=== PATIENT | male | born 1960 | race Caucasian/White ===

== ENCOUNTER 2017-11-27 11:23 | Inpatient (IN) | payer MEDICAID ==
[~2017-11-27] VITALS: Ht 170.2 cm; Wt 61.2 kg
[2017-11-27 12:28] LABS: BASOPHILS % 0.3 % (0.0-2.0); EOSINOPHILS % 0.6 % (0.0-5.0); HEMATOCRIT. 40.4 % (42.0-52.0); HEMOGLOBIN. 14.1 g/dL (14.0-18.0); LYMPHOCYTES % 9.5 % (20.0-50.0); MEAN CORPUSCULAR HEMOGLOBIN 31.3 pg (28.0-32.0); MEAN PLATELET VOLUME 8.5 fl (7.4-10.4); MONOCYTES % 5.8 % (2.0-8.0); NEUTROPHILS % 83.8 % (40.0-76.0); PLATELET 231 x1000/uL (130-400); RED BLOOD CELL COUNT 4.49 mill/uL (4.7-6.1); RED CELL DISTRIBUTION WIDTH 13.6 % (11.6-14.6)
[2017-11-27 12:31] LABS: CHLORIDE 107 mEq/L (98-107)
[2017-11-27 12:35] LABS: ETHANOL BLOOD < 10 mg/dL
[2017-11-28] VITALS: BP 143/50
[2017-11-28] MEDS ORDERED: SODIUM CHLORIDE 0.9% 1,000 ML IV ONE ×2 (09:09→12:11)
[2017-11-28 10:12] LABS: CLARITY URINE CLEAR (CLEAR); COLOR URINE YELLOW (YELLOW); KETONES URINE NEGATIVE (NEGATIVE); LEUKOCYTE ESTERASE URINE NEGATIVE (NEGATIVE); NITRITE URINE NEGATIVE (NEGATIVE); OCCULT BLOOD URINE NEGATIVE (NEGATIVE); PH URINE 5.5 (4.5-8.0); PROTEIN URINE NEGATIVE (NEGATIVE); SPECIFIC GRAVITY URINE 1.015 (1.005-1.030); UROBILINOGEN URINE 0.2 E.U./dL (0.2-1.0)
[2017-11-28] MEDS ORDERED: MORPHINE SULFATE 4 MG/ML CPJ (NOT FOR IM USE) IV ONE (10:45)
[2017-11-28] MEDS ORDERED: ONDANSETRON HCL 4MG/2ML INJ IV ONE (10:45)
[2017-11-28 10:59] LABS: *AMPHETAMINES SCREEN URINE PRESUMTIVE POSITIVE (NEGATIVE)
[2017-11-28 11:01] LABS: *BARBITURATES SCREEN URINE NEGATIVE (NEGATIVE); *BENZODIAZEPINES SCREEN URINE NEGATIVE (NEGATIVE); *COCAINE SCREEN URINE NEGATIVE (NEGATIVE); CANNABINOID URINE SCREEN NEGATIVE (NEGATIVE); OPIATES URINE SCREEN NEGATIVE (NEGATIVE); PHENCYCLIDINE URINE SCREEN NEGATIVE (NEGATIVE)
[2017-11-28 11:03] LABS: AMMONIA 31 uMol/L (<32)
[2017-11-28 11:12] LABS: METHADONE URINE SCREEN NEGATIVE (NEGATIVE)
[2017-11-28 15:03] LABS: CREATINE KINASE 945 IU/L (39-308)
[2017-11-28] MEDS ORDERED: CLONIDINE 0.1MG TABLET PO PRN (16:45)
[2017-11-28] MEDS ORDERED: ACETAMINOPHEN 325MG TABLET PO PRN (16:45)
[2017-11-28] MEDS ORDERED: MAGNESIUM/ALUMINUM HYDROXIDE/SIMETHICONE 30ML UDC PO PRN (16:45)
[2017-11-28] MEDS ORDERED: IPRATROPIUM/ALBUTEROL 0.5-3(2.5)MG/3ML NEB INH PRN (16:45)
[2017-11-28] MEDS ORDERED: DOCUSATE SODIUM 100MG CAPSULE PO PRN (16:45)
[2017-11-28] MEDS ORDERED: ONDANSETRON HCL 4MG/2ML INJ IV PRN (16:45)
[2017-11-28] MEDS ORDERED: NITROGLYCERIN 0.4MG TABLET SL SL PRN (16:45)
[2017-11-28] MEDS ORDERED: KETOROLAC 15MG/ML VIAL IV PRN (18:06)
[2017-11-28] MEDS ORDERED: NA PHOS,M-B/NA PHOS,DI-BA ENEMA 118ML PR PRN (21:00)
[2017-11-28 21:20] VITALS: BP 103/50
[2017-11-28] MEDS: FAMOTIDINE 20MG TABLET PO SCH (22:01)
[2017-11-28] MEDS: SODIUM CHLORIDE 0.9% 1,000 ML IV SCH (22:59)
[2017-11-29 04:00] VITALS: BP 131/58
[2017-11-29 06:43] LABS: CREATINE KINASE MB FRACTION 25.3 ng/mL (0.5-3.6)
[2017-11-29 08:00] VITALS: BP 115/62
[2017-11-29] MEDS: ASPIRIN 325MG EC TABLET PO SCH (09:00)
[2017-11-29] MEDS: FAMOTIDINE 20MG TABLET PO SCH ×3 (09:00→21:00)
[2017-11-29] MEDS: ENOXAPARIN 40MG/0.4ML SYR SUBCUT SCH (09:13)
[2017-11-29] MEDS: LORAZEPAM 0.5MG TABLET PO PRN ×2 (10:17→20:45)
[2017-11-29 12:00] VITALS: BP 136/59
[2017-11-29 16:00] VITALS: BP 110/64
[2017-11-29] MEDS: SODIUM CHLORIDE 0.9% 1,000 ML IV SCH (18:06)
[2017-11-29 20:00] VITALS: BP 118/53
[2017-11-29] MEDS: ATORVASTATIN CALCIUM 10MG TABLET PO SCH ×2 (20:44→21:00)
[2017-11-30] MEDS: SODIUM CHLORIDE 0.9% 1,000 ML IV SCH ×2 (00:43→14:33)
[2017-11-30 04:00] VITALS: BP 138/85
[2017-11-30 06:35] LABS: HEMATOCRIT. 43.2 % (42.0-52.0); MEAN CORPUSCULAR HEMOGLOBIN 31.4 pg (28.0-32.0); MEAN CORPUSCULAR VOLUME 90.5 fL (80.0-94.0); MEAN PLATELET VOLUME 8.8 fl (7.4-10.4); PLATELET 231 x1000/uL (130-400); RED BLOOD CELL COUNT 4.78 mill/uL (4.7-6.1); RED CELL DISTRIBUTION WIDTH 13.7 % (11.6-14.6)
[2017-11-30 07:37] LABS: CHLORIDE 102 mEq/L (98-107)
[2017-11-30 08:00] VITALS: BP 121/36
[2017-11-30] MEDS: FAMOTIDINE 20MG TABLET PO SCH ×2 (09:16→20:56)
[2017-11-30] MEDS: ENOXAPARIN 40MG/0.4ML SYR SUBCUT SCH (09:16)
[2017-11-30] MEDS: ASPIRIN 325MG EC TABLET PO SCH (09:16)
[2017-11-30 12:00] VITALS: BP 105/36
[2017-11-30 16:00] VITALS: BP 105/33
[2017-11-30 17:34] LABS: PLATELET ESTIMATE NORMAL
[2017-11-30 20:00] VITALS: BP 121/47
[2017-11-30] MEDS: ATORVASTATIN CALCIUM 10MG TABLET PO SCH (20:56)
[2017-12-01] VITALS: BP 106/45
[2017-12-01 04:00] VITALS: BP 122/56
[2017-12-01 08:00] VITALS: BP 108/49
[2017-12-01] MEDS: FAMOTIDINE 20MG TABLET PO SCH ×2 (09:00→21:00)
[2017-12-01] MEDS: ASPIRIN 325MG EC TABLET PO SCH (09:00)
[2017-12-01] MEDS: ENOXAPARIN 40MG/0.4ML SYR SUBCUT SCH (11:15)
[2017-12-01] MEDS: SODIUM CHLORIDE 0.9% 1,000 ML IV SCH ×2 (11:28→16:43)
[2017-12-01 12:00] VITALS: BP 123/63
[2017-12-01 16:00] VITALS: BP 110/60
[2017-12-01 20:00] VITALS: BP 127/59
[2017-12-01] MEDS: ATORVASTATIN CALCIUM 10MG TABLET PO SCH (21:00)
[2017-12-02] VITALS: BP 116/57
[2017-12-02 04:00] VITALS: BP 126/81
[2017-12-02] MEDS: SODIUM CHLORIDE 0.9% 1,000 ML IV SCH ×2 (06:03→21:35)
[2017-12-02 08:00] VITALS: BP 108/50
[2017-12-02] MEDS: FAMOTIDINE 20MG TABLET PO SCH ×2 (09:45→20:27)
[2017-12-02] MEDS: ENOXAPARIN 40MG/0.4ML SYR SUBCUT SCH (09:46)
[2017-12-02] MEDS: ASPIRIN 325MG EC TABLET PO SCH (09:46)
[2017-12-02 12:00] VITALS: BP 114/52
[2017-12-02 16:00] VITALS: BP 116/54
[2017-12-02 20:00] VITALS: BP 159/66
[2017-12-02] MEDS: ATORVASTATIN CALCIUM 10MG TABLET PO SCH (20:27)
[2017-12-03] VITALS: BP 151/67
[2017-12-03 04:00] VITALS: BP 133/65
[2017-12-03 08:00] VITALS: BP 134/56
[2017-12-03] MEDS: ENOXAPARIN 40MG/0.4ML SYR SUBCUT SCH (09:39)
[2017-12-03] MEDS: FAMOTIDINE 20MG TABLET PO SCH ×2 (09:39→20:48)
[2017-12-03] MEDS: ASPIRIN 325MG EC TABLET PO SCH (09:39)
[2017-12-03 12:00] VITALS: BP 118/49
[2017-12-03 16:00] VITALS: BP 133/37
[2017-12-03 20:00] VITALS: BP 138/46
[2017-12-03] MEDS: ATORVASTATIN CALCIUM 10MG TABLET PO SCH (20:48)
[2017-12-04] VITALS: BP 140/57
[2017-12-04 04:00] VITALS: BP 118/56
[2017-12-04 08:00] VITALS: BP 105/34
[2017-12-04] MEDS: ENOXAPARIN 40MG/0.4ML SYR SUBCUT SCH (09:18)
[2017-12-04] MEDS: ASPIRIN 325MG EC TABLET PO SCH (09:18)
[2017-12-04] MEDS: FAMOTIDINE 20MG TABLET PO SCH ×3 (09:18→21:21)
[2017-12-04 12:00] VITALS: BP 104/54
[2017-12-04 16:00] VITALS: BP 117/60
[2017-12-04 20:00] VITALS: BP_SYST 113; BP_SYST 161; BP_DIAS 52; BP_DIAS 93
[2017-12-04] MEDS: ATORVASTATIN CALCIUM 10MG TABLET PO SCH ×2 (21:00→21:21)
[2017-12-05] VITALS: BP 122/62
[2017-12-05 04:00] VITALS: BP 112/60
[2017-12-05 08:00] VITALS: BP 116/36
[2017-12-05] MEDS: FAMOTIDINE 20MG TABLET PO SCH ×2 (09:18→20:36)
[2017-12-05] MEDS: ASPIRIN 325MG EC TABLET PO SCH (09:18)
[2017-12-05] MEDS: ENOXAPARIN 40MG/0.4ML SYR SUBCUT SCH (09:18)
[2017-12-05] MEDS: CLOPIDOGREL 75MG TABLET PO SCH (11:04)
[2017-12-05 12:00] VITALS: BP 117/55
[2017-12-05 13:51] LABS: T4 FREE 0.72 ng/dL (0.76-1.46)
[2017-12-05 14:04] LABS: FOLIC ACID (FOLATE) SERUM >20 ng/mL ng/mL (>5.38)
[2017-12-05 14:16] LABS: VITAMIN B12 SERUM 1155 pg/mL (211-911)
[2017-12-05 16:00] VITALS: BP 125/45
[2017-12-05 20:00] VITALS: BP 122/36
[2017-12-05] MEDS: ATORVASTATIN CALCIUM 10MG TABLET PO SCH (20:36)
[2017-12-06] VITALS: BP 124/58
[2017-12-06 04:00] VITALS: BP 104/48
[2017-12-06 08:00] VITALS: BP 120/53
[2017-12-06] MEDS: ENOXAPARIN 40MG/0.4ML SYR SUBCUT SCH (08:48)
[2017-12-06] MEDS: ASPIRIN 325MG EC TABLET PO SCH (08:48)
[2017-12-06] MEDS: CLOPIDOGREL 75MG TABLET PO SCH (08:48)
[2017-12-06] MEDS: FAMOTIDINE 20MG TABLET PO SCH ×2 (08:48→21:50)
[2017-12-06 12:00] VITALS: BP 119/55
[2017-12-06 16:00] VITALS: BP 118/54
[2017-12-06 20:00] VITALS: BP 118/49
[2017-12-06] MEDS: ATORVASTATIN CALCIUM 10MG TABLET PO SCH (21:51)
[2017-12-07] VITALS: BP 124/54
[2017-12-07 04:00] VITALS: BP 130/59
[2017-12-07 08:00] VITALS: BP 130/59
[2017-12-07 10:10] LABS: ANTI-THROMBIN ACTIVITY 131 % (75-135); DRVVT LA 29.9 sec (0.0-47.0); LUPUS ANTICOAG INTERPRETATION Comment: (.); PROTEIN C FUNCTIONAL 151 % (73-180)
[2017-12-07] MEDS: FAMOTIDINE 20MG TABLET PO SCH ×2 (11:00→20:53)
[2017-12-07] MEDS: ASPIRIN 325MG EC TABLET PO SCH (11:00)
[2017-12-07] MEDS: ENOXAPARIN 40MG/0.4ML SYR SUBCUT SCH (11:00)
[2017-12-07] MEDS: CLOPIDOGREL 75MG TABLET PO SCH (11:00)
[2017-12-07 12:00] VITALS: BP 110/65
[2017-12-07 16:00] VITALS: BP 102/57
[2017-12-07 17:24] LABS: BASOPHILS % 1.3 % (0.0-2.0); EOSINOPHILS % 0.8 % (0.0-5.0); HEMATOCRIT. 43.4 % (42.0-52.0); HEMOGLOBIN. 15.1 g/dL (14.0-18.0); LYMPHOCYTES % 12.9 % (20.0-50.0); MEAN CORPUSCULAR HEMOGLOBIN 30.9 pg (28.0-32.0); MEAN CORPUSCULAR VOLUME 88.7 fL (80.0-94.0); MEAN PLATELET VOLUME 8.1 fl (7.4-10.4); MONOCYTES % 7.4 % (2.0-8.0); NEUTROPHILS % 77.6 % (40.0-76.0); PLATELET 405 x1000/uL (130-400); RED CELL DISTRIBUTION WIDTH 13.5 % (11.6-14.6)
[2017-12-07 17:33] LABS: CHLORIDE 102 mEq/L (98-107)
[2017-12-07 20:00] VITALS: BP 125/54
[2017-12-07] MEDS: ATORVASTATIN CALCIUM 10MG TABLET PO SCH (20:53)
[2017-12-08] VITALS: BP 121/58
[2017-12-08 04:00] VITALS: BP 130/52
[2017-12-08 08:00] VITALS: BP 107/70
[2017-12-08] MEDS: ASPIRIN 325MG EC TABLET PO SCH (08:32)
[2017-12-08] MEDS: CLOPIDOGREL 75MG TABLET PO SCH (08:32)
[2017-12-08] MEDS: FAMOTIDINE 20MG TABLET PO SCH ×2 (08:32→21:15)
[2017-12-08] MEDS: ENOXAPARIN 40MG/0.4ML SYR SUBCUT SCH (08:32)
[2017-12-08 09:06] LABS: ANTI-CARDIOLIPIN AB IGA 9 APL U/mL (0-11); ANTI-CARDIOLIPIN AB IGM < 9 MPL U/mL (0-12)
[2017-12-08 10:07] LABS: ANTI-CARDIOLIPIN AB IGG < 9 GPL U/mL (0-14)
[2017-12-08 12:00] VITALS: BP 98/55
[2017-12-08 16:00] VITALS: BP 115/41
[2017-12-08 20:00] VITALS: BP 107/44
[2017-12-08] MEDS: ATORVASTATIN CALCIUM 10MG TABLET PO SCH (21:15)
[2017-12-09] VITALS: BP 111/45
[2017-12-09 05:02] VITALS: BP 100/46
[2017-12-09 08:00] VITALS: BP 93/58
[2017-12-09] MEDS: CLOPIDOGREL 75MG TABLET PO SCH (08:58)
[2017-12-09] MEDS: FAMOTIDINE 20MG TABLET PO SCH ×2 (08:58→21:05)
[2017-12-09] MEDS: ASPIRIN 325MG EC TABLET PO SCH (08:58)
[2017-12-09] MEDS: ENOXAPARIN 40MG/0.4ML SYR SUBCUT SCH (08:59)
[2017-12-09 12:00] VITALS: BP 106/37
[2017-12-09 16:00] VITALS: BP 95/49
[2017-12-09 20:00] VITALS: BP 124/39
[2017-12-09] MEDS: ATORVASTATIN CALCIUM 10MG TABLET PO SCH (21:05)
[2017-12-10] VITALS: BP 123/34
[2017-12-10 04:00] VITALS: BP 119/59
[2017-12-10 08:00] VITALS: BP 98/53
[2017-12-10] MEDS: FAMOTIDINE 20MG TABLET PO SCH ×2 (08:46→21:14)
[2017-12-10] MEDS: ASPIRIN 325MG EC TABLET PO SCH (08:46)
[2017-12-10] MEDS: CLOPIDOGREL 75MG TABLET PO SCH (08:46)
[2017-12-10] MEDS: ENOXAPARIN 40MG/0.4ML SYR SUBCUT SCH (08:46)
[2017-12-10 12:00] VITALS: BP 100/73
[2017-12-10 16:00] VITALS: BP 107/35
[2017-12-10] MEDS: GUAIFENESIN 200MG/10ML SUGAR FREE UDC PO PRN (17:34)
[2017-12-10 20:00] VITALS: BP 106/40
[2017-12-10] MEDS: ATORVASTATIN CALCIUM 10MG TABLET PO SCH (21:14)
[2017-12-11] VITALS: BP 114/38
[2017-12-11 04:00] VITALS: BP 116/39
[2017-12-11 08:00] VITALS: BP 106/49
[2017-12-11] MEDS: ENOXAPARIN 40MG/0.4ML SYR SUBCUT SCH (10:01)
[2017-12-11] MEDS: ASPIRIN 325MG EC TABLET PO SCH (10:02)
[2017-12-11] MEDS: CLOPIDOGREL 75MG TABLET PO SCH (10:02)
[2017-12-11] MEDS: FAMOTIDINE 20MG TABLET PO SCH ×2 (10:02→21:38)
[2017-12-11] MEDS: GUAIFENESIN 200MG/10ML SUGAR FREE UDC PO PRN ×2 (10:04→15:30)
[2017-12-11 10:48] LABS: BASOPHILS % 0.5 % (0.0-2.0); HEMATOCRIT. 40.9 % (42.0-52.0); HEMOGLOBIN. 14.2 g/dL (14.0-18.0); LYMPHOCYTES % 14.9 % (20.0-50.0); MEAN CORPUSCULAR HEMOGLOBIN 30.9 pg (28.0-32.0); MEAN CORPUSCULAR VOLUME 89.3 fL (80.0-94.0); NEUTROPHILS % 78.6 % (40.0-76.0); PLATELET 377 x1000/uL (130-400); RED BLOOD CELL COUNT 4.58 mill/uL (4.7-6.1)
[2017-12-11 10:58] LABS: CHLORIDE 101 mEq/L (98-107)
[2017-12-11 12:00] VITALS: BP 108/50
[2017-12-11 16:00] VITALS: BP 102/49
[2017-12-11 20:00] VITALS: BP 128/49
[2017-12-11] MEDS: ATORVASTATIN CALCIUM 10MG TABLET PO SCH (21:38)
[2017-12-12] VITALS: BP 126/52
[2017-12-12 04:00] VITALS: BP 133/58
[2017-12-12 07:41] LABS: BASOPHILS % 0.5 % (0.0-2.0); HEMATOCRIT. 39.8 % (42.0-52.0); HEMOGLOBIN. 14.1 g/dL (14.0-18.0); LYMPHOCYTES % 17.7 % (20.0-50.0); MEAN CORPUSCULAR HEMOGLOBIN 31.2 pg (28.0-32.0); MEAN CORPUSCULAR VOLUME 88.1 fL (80.0-94.0); MEAN PLATELET VOLUME 8.3 fl (7.4-10.4); MONOCYTES % 6.6 % (2.0-8.0); NEUTROPHILS % 73.2 % (40.0-76.0); PLATELET 371 x1000/uL (130-400); RED BLOOD CELL COUNT 4.52 mill/uL (4.7-6.1); RED CELL DISTRIBUTION WIDTH 13.2 % (11.6-14.6)
[2017-12-12 07:58] LABS: CHLORIDE 105 mEq/L (98-107)
[2017-12-12 08:00] VITALS: BP 104/48
[2017-12-12] MEDS: FAMOTIDINE 20MG TABLET PO SCH ×3 (09:01→22:55)
[2017-12-12] MEDS: ASPIRIN 325MG EC TABLET PO SCH (09:01)
[2017-12-12] MEDS: CLOPIDOGREL 75MG TABLET PO SCH (09:01)
[2017-12-12] MEDS: ENOXAPARIN 40MG/0.4ML SYR SUBCUT SCH (09:01)
[2017-12-12] MEDS: MAGNESIUM OXIDE 400MG TABLET PO SCH (11:33)
[2017-12-12 12:00] VITALS: BP 116/44
[2017-12-12 16:00] VITALS: BP 100/40
[2017-12-12 20:00] VITALS: BP 114/51
[2017-12-12] MEDS: ATORVASTATIN CALCIUM 10MG TABLET PO SCH ×2 (21:00→22:55)
[2017-12-13] VITALS: BP 118/50
[2017-12-13 04:00] VITALS: BP 126/58
[2017-12-13 08:00] VITALS: BP 112/51
[2017-12-13] MEDS: FAMOTIDINE 20MG TABLET PO SCH ×2 (08:42→20:53)
[2017-12-13] MEDS: ASPIRIN 325MG EC TABLET PO SCH (08:42)
[2017-12-13] MEDS: MAGNESIUM OXIDE 400MG TABLET PO SCH (08:42)
[2017-12-13] MEDS: CLOPIDOGREL 75MG TABLET PO SCH (08:42)
[2017-12-13] MEDS: ENOXAPARIN 40MG/0.4ML SYR SUBCUT SCH (08:43)
[2017-12-13 12:00] VITALS: BP 110/43
[2017-12-13 16:00] VITALS: BP 103/45
[2017-12-13 20:00] VITALS: BP 116/59
[2017-12-13] MEDS: ATORVASTATIN CALCIUM 10MG TABLET PO SCH (20:52)
[2017-12-14] VITALS: BP_SYST 108; BP_SYST 112; BP_DIAS 51; BP_DIAS 62
[2017-12-14 04:00] VITALS: BP_SYST 103; BP_SYST 99; BP_DIAS 62; BP_DIAS 63
[2017-12-14 08:00] VITALS: BP 99/45
[2017-12-14] MEDS: ENOXAPARIN 40MG/0.4ML SYR SUBCUT SCH (09:00)
[2017-12-14] MEDS: MAGNESIUM OXIDE 400MG TABLET PO SCH (09:32)
[2017-12-14] MEDS: FAMOTIDINE 20MG TABLET PO SCH ×2 (09:32→21:10)
[2017-12-14] MEDS: CLOPIDOGREL 75MG TABLET PO SCH (09:33)
[2017-12-14] MEDS: ASPIRIN 325MG EC TABLET PO SCH (09:33)
[2017-12-14 12:00] VITALS: BP 124/31
[2017-12-14 16:00] VITALS: BP 115/29
[2017-12-14 20:00] VITALS: BP 107/44
[2017-12-14] MEDS: ATORVASTATIN CALCIUM 10MG TABLET PO SCH (21:10)
[2017-12-15] VITALS: BP 107/55
[2017-12-15 04:00] VITALS: BP 117/58
[2017-12-15 08:00] VITALS: BP 115/47
[2017-12-15] MEDS: ENOXAPARIN 40MG/0.4ML SYR SUBCUT SCH (09:00)
[2017-12-15] MEDS: FAMOTIDINE 20MG TABLET PO SCH ×2 (09:20→21:00)
[2017-12-15] MEDS: MAGNESIUM OXIDE 400MG TABLET PO SCH (09:20)
[2017-12-15] MEDS: CLOPIDOGREL 75MG TABLET PO SCH (09:20)
[2017-12-15] MEDS: ASPIRIN 325MG EC TABLET PO SCH (09:20)
[2017-12-15 12:00] VITALS: BP 101/54
[2017-12-15 16:00] VITALS: BP 102/46
[2017-12-15 20:00] VITALS: BP 104/51
[2017-12-15] MEDS: ATORVASTATIN CALCIUM 10MG TABLET PO SCH (21:00)
[2017-12-16] VITALS: BP 106/52
[2017-12-16 04:00] VITALS: BP 121/40
[2017-12-16] MEDS: MAGNESIUM OXIDE 400MG TABLET PO SCH (09:03)
[2017-12-16] MEDS: CLOPIDOGREL 75MG TABLET PO SCH (09:03)
[2017-12-16] MEDS: FAMOTIDINE 20MG TABLET PO SCH ×2 (09:03→20:28)
[2017-12-16] MEDS: ASPIRIN 325MG EC TABLET PO SCH (09:04)
[2017-12-16] MEDS: ENOXAPARIN 40MG/0.4ML SYR SUBCUT SCH (09:04)
[2017-12-16 12:00] VITALS: BP 111/51
[2017-12-16 16:00] VITALS: BP 107/50
[2017-12-16] MEDS: GUAIFENESIN 200MG/10ML SUGAR FREE UDC PO PRN (17:43)
[2017-12-16 20:00] VITALS: BP 100/51
[2017-12-16] MEDS: ATORVASTATIN CALCIUM 10MG TABLET PO SCH (20:28)
[2017-12-17] VITALS: BP 110/48
[2017-12-17 04:00] VITALS: BP 101/42
[2017-12-17 08:00] VITALS: BP 102/51
[2017-12-17] MEDS: ENOXAPARIN 40MG/0.4ML SYR SUBCUT SCH (08:11)
[2017-12-17] MEDS: CLOPIDOGREL 75MG TABLET PO SCH (08:11)
[2017-12-17] MEDS: ASPIRIN 325MG EC TABLET PO SCH (08:11)
[2017-12-17] MEDS: FAMOTIDINE 20MG TABLET PO SCH ×2 (08:11→22:47)
[2017-12-17] MEDS: MAGNESIUM OXIDE 400MG TABLET PO SCH (08:11)
[2017-12-17 12:00] VITALS: BP 110/50
[2017-12-17 16:24] VITALS: BP 110/56
[2017-12-17 20:00] VITALS: BP 114/43
[2017-12-17] MEDS: ATORVASTATIN CALCIUM 10MG TABLET PO SCH (22:46)
[2017-12-18 00:19] VITALS: BP 113/37
[2017-12-18 04:00] VITALS: BP 92/39
[2017-12-18 08:00] VITALS: BP 128/57
[2017-12-18] MEDS: MAGNESIUM OXIDE 400MG TABLET PO SCH (08:46)
[2017-12-18] MEDS: CLOPIDOGREL 75MG TABLET PO SCH (08:46)
[2017-12-18] MEDS: FAMOTIDINE 20MG TABLET PO SCH ×2 (08:47→20:31)
[2017-12-18] MEDS: ASPIRIN 325MG EC TABLET PO SCH (08:47)
[2017-12-18] MEDS: ENOXAPARIN 40MG/0.4ML SYR SUBCUT SCH (08:48)
[2017-12-18 12:00] VITALS: BP 116/57
[2017-12-18 16:00] VITALS: BP 97/57
[2017-12-18 20:00] VITALS: BP 103/51
[2017-12-18] MEDS: ATORVASTATIN CALCIUM 10MG TABLET PO SCH (20:31)
[2017-12-19] VITALS (7 sets, daily range): BP systolic 101–118; BP diastolic 45–59
[2017-12-19 06:58] LABS: BASOPHILS % 0.4 % (0.0-2.0); EOSINOPHILS % 1.6 % (0.0-5.0); HEMATOCRIT. 38.5 % (42.0-52.0); HEMOGLOBIN. 13.7 g/dL (14.0-18.0); LYMPHOCYTES % 19.5 % (20.0-50.0); MEAN CORPUSCULAR HEMOGLOBIN 31.4 pg (28.0-32.0); MEAN CORPUSCULAR VOLUME 88.5 fL (80.0-94.0); MONOCYTES % 7.9 % (2.0-8.0); NEUTROPHILS % 70.6 % (40.0-76.0); PLATELET 303 x1000/uL (130-400); RED BLOOD CELL COUNT 4.35 mill/uL (4.7-6.1); RED CELL DISTRIBUTION WIDTH 13.4 % (11.6-14.6)
[2017-12-19 07:36] LABS: CHLORIDE 104 mEq/L (98-107)
[2017-12-19] MEDS: CLOPIDOGREL 75MG TABLET PO SCH (08:42)
[2017-12-19] MEDS: MAGNESIUM OXIDE 400MG TABLET PO SCH (08:42)
[2017-12-19] MEDS: ASPIRIN 325MG EC TABLET PO SCH (08:42)
[2017-12-19] MEDS: FAMOTIDINE 20MG TABLET PO SCH ×2 (08:42→20:39)
[2017-12-19] MEDS: ATORVASTATIN CALCIUM 10MG TABLET PO SCH (20:39)
[2017-12-20] VITALS: BP 111/56
[2017-12-20 04:00] VITALS: BP 124/55
[2017-12-20 08:00] VITALS: BP 111/60
[2017-12-20] MEDS: ASPIRIN 325MG EC TABLET PO SCH (08:23)
[2017-12-20] MEDS: CLOPIDOGREL 75MG TABLET PO SCH (08:23)
[2017-12-20] MEDS: FAMOTIDINE 20MG TABLET PO SCH ×2 (08:23→21:29)
[2017-12-20] MEDS: MAGNESIUM OXIDE 400MG TABLET PO SCH (08:24)
[2017-12-20 12:00] VITALS: BP 98/59
[2017-12-20 16:00] VITALS: BP 113/50
[2017-12-20 20:00] VITALS: BP 117/48
[2017-12-20] MEDS: ATORVASTATIN CALCIUM 10MG TABLET PO SCH (21:29)
[2017-12-21] VITALS: BP 110/49
[2017-12-21 04:00] VITALS: BP 116/57
[2017-12-21 08:00] VITALS: BP 95/43
[2017-12-21] MEDS: ASPIRIN 325MG EC TABLET PO SCH (08:40)
[2017-12-21] MEDS: FAMOTIDINE 20MG TABLET PO SCH (08:40)
[2017-12-21] MEDS: MAGNESIUM OXIDE 400MG TABLET PO SCH (08:41)
[2017-12-21] MEDS: CLOPIDOGREL 75MG TABLET PO SCH (08:41)
[2017-12-21 12:00] VITALS: BP 110/53
[2017-12-21 16:05] VITALS: BP 101/45
[2017-12-22] VITALS: BP 110/53
[2017-12-22 04:00] VITALS: BP 136/74
[2017-12-22 08:00] VITALS: BP 103/41
[2017-12-22] MEDS: ASPIRIN 325MG EC TABLET PO SCH (10:03)
[2017-12-22] MEDS: FAMOTIDINE 20MG TABLET PO SCH ×3 (10:04→22:49)
[2017-12-22] MEDS: MAGNESIUM OXIDE 400MG TABLET PO SCH (10:04)
[2017-12-22] MEDS: CLOPIDOGREL 75MG TABLET PO SCH (10:04)
[2017-12-22 11:58] VITALS: BP 106/38
[2017-12-22 16:00] VITALS: BP 92/40
[2017-12-22 20:00] VITALS: BP 104/45
[2017-12-22] MEDS: ATORVASTATIN CALCIUM 10MG TABLET PO SCH ×2 (22:49)
[2017-12-23] VITALS: BP 101/47
[2017-12-23 04:00] VITALS: BP 102/47
[2017-12-23 05:16] LABS: CHLORIDE 105 mEq/L (98-107)
[2017-12-23 05:21] LABS: PHOSPHORUS 3.5 mg/dL (2.5-4.9)
[2017-12-23 06:13] LABS: BASOPHILS % 0.4 % (0.0-2.0); EOSINOPHILS % 3.3 % (0.0-5.0); HEMOGLOBIN. 13.4 g/dL (14.0-18.0); LYMPHOCYTES % 20.1 % (20.0-50.0); MEAN CORPUSCULAR HEMOGLOBIN 31.3 pg (28.0-32.0); MEAN PLATELET VOLUME 8.7 fl (7.4-10.4); MONOCYTES % 9.1 % (2.0-8.0); NEUTROPHILS % 67.1 % (40.0-76.0); PLATELET 271 x1000/uL (130-400); RED BLOOD CELL COUNT 4.26 mill/uL (4.7-6.1); RED CELL DISTRIBUTION WIDTH 13.6 % (11.6-14.6)
[2017-12-23 08:00] VITALS: BP 104/57
[2017-12-23] MEDS: MAGNESIUM OXIDE 400MG TABLET PO SCH ×2 (10:12→18:29)
[2017-12-23] MEDS: ASPIRIN 325MG EC TABLET PO SCH (10:13)
[2017-12-23] MEDS: FAMOTIDINE 20MG TABLET PO SCH ×2 (10:13→21:21)
[2017-12-23] MEDS: CLOPIDOGREL 75MG TABLET PO SCH (10:13)
[2017-12-23 12:00] VITALS: BP 96/43
[2017-12-23 16:00] VITALS: BP 107/47
[2017-12-23 20:00] VITALS: BP 111/57
[2017-12-23] MEDS: ATORVASTATIN CALCIUM 10MG TABLET PO SCH (21:21)
[2017-12-23] MEDS: HALOPERIDOL LACTATE 5MG/ML VIAL IM PRN (21:22)
[2017-12-24 04:00] VITALS: BP 112/40
[2017-12-24 08:00] VITALS: BP 100/52
[2017-12-24] MEDS: CLOPIDOGREL 75MG TABLET PO SCH (09:15)
[2017-12-24] MEDS: MAGNESIUM OXIDE 400MG TABLET PO SCH ×2 (09:15→17:40)
[2017-12-24] MEDS: FAMOTIDINE 20MG TABLET PO SCH ×2 (09:16→20:57)
[2017-12-24] MEDS: ASPIRIN 325MG EC TABLET PO SCH (09:16)
[2017-12-24 12:00] VITALS: BP 131/84
[2017-12-24 16:00] VITALS: BP 104/50
[2017-12-24 20:00] VITALS: BP 109/44
[2017-12-24] MEDS: ATORVASTATIN CALCIUM 10MG TABLET PO SCH (20:57)
[2017-12-25] VITALS: BP 95/41
[2017-12-25] MEDS: HALOPERIDOL LACTATE 5MG/ML VIAL IM PRN (02:40)
[2017-12-25 04:00] VITALS: BP 105/46
[2017-12-25 08:00] VITALS: BP 106/53
[2017-12-25] MEDS: CLOPIDOGREL 75MG TABLET PO SCH (08:33)
[2017-12-25] MEDS: ASPIRIN 325MG EC TABLET PO SCH (08:34)
[2017-12-25] MEDS: FAMOTIDINE 20MG TABLET PO SCH ×2 (08:34→22:56)
[2017-12-25] MEDS: MAGNESIUM OXIDE 400MG TABLET PO SCH ×2 (08:34→16:10)
[2017-12-25 12:00] VITALS: BP 95/32
[2017-12-25 16:00] VITALS: BP 99/54
[2017-12-25 20:00] VITALS: BP 104/46
[2017-12-25] MEDS: ATORVASTATIN CALCIUM 10MG TABLET PO SCH (22:56)
[2017-12-26] VITALS: BP 105/80
[2017-12-26 04:00] VITALS: BP 102/46
[2017-12-26 08:00] VITALS: BP_SYST 102; BP_SYST 104; BP_DIAS 32; BP_DIAS 42
[2017-12-26] MEDS: ASPIRIN 325MG EC TABLET PO SCH (09:07)
[2017-12-26] MEDS: MAGNESIUM OXIDE 400MG TABLET PO SCH ×2 (09:07→16:18)
[2017-12-26] MEDS: CLOPIDOGREL 75MG TABLET PO SCH (09:07)
[2017-12-26] MEDS: FAMOTIDINE 20MG TABLET PO SCH ×2 (09:07→21:00)
[2017-12-26 12:00] VITALS: BP 96/42
[2017-12-26 16:00] VITALS: BP 112/41
[2017-12-26] MEDS: HALOPERIDOL LACTATE 5MG/ML VIAL IM PRN (16:56)
[2017-12-26 20:00] VITALS: BP 92/41
[2017-12-26] MEDS: ATORVASTATIN CALCIUM 10MG TABLET PO SCH (21:00)
[2017-12-27] VITALS: BP 107/45
[2017-12-27 04:00] VITALS: BP 118/55
[2017-12-27 07:00] LABS: BASOPHILS % 0.4 % (0.0-2.0); EOSINOPHILS % 3.7 % (0.0-5.0); HEMATOCRIT. 39.2 % (42.0-52.0); HEMOGLOBIN. 13.9 g/dL (14.0-18.0); LYMPHOCYTES % 17.7 % (20.0-50.0); MEAN CORPUSCULAR HEMOGLOBIN 31.1 pg (28.0-32.0); MEAN CORPUSCULAR VOLUME 87.6 fL (80.0-94.0); MEAN PLATELET VOLUME 8.6 fl (7.4-10.4); MONOCYTES % 8.4 % (2.0-8.0); NEUTROPHILS % 69.8 % (40.0-76.0); PLATELET 259 x1000/uL (130-400); RED BLOOD CELL COUNT 4.48 mill/uL (4.7-6.1); RED CELL DISTRIBUTION WIDTH 13.6 % (11.6-14.6)
[2017-12-27 08:00] VITALS: BP 94/31
[2017-12-27] MEDS: MAGNESIUM OXIDE 400MG TABLET PO SCH ×2 (09:02→18:22)
[2017-12-27] MEDS: CLOPIDOGREL 75MG TABLET PO SCH (09:02)
[2017-12-27] MEDS: ASPIRIN 325MG EC TABLET PO SCH (09:02)
[2017-12-27 09:45] LABS: CHLORIDE 103 mEq/L (98-107)
[2017-12-27 10:15] LABS: PHOSPHORUS 3.4 mg/dL (2.5-4.9)
[2017-12-27 12:00] VITALS: BP 102/42
[2017-12-27] MEDS ORDERED: BARIUM SULFATE 176 GM SUSP.RECON ONE (14:44)
[2017-12-27 16:00] VITALS: BP 100/46
[2017-12-27 20:00] VITALS: BP 101/62
[2017-12-27] MEDS: ATORVASTATIN CALCIUM 10MG TABLET PO SCH (21:00)
[2017-12-28] VITALS: BP 113/53
[2017-12-28 04:00] VITALS: BP 130/50
[2017-12-28 08:00] VITALS: BP 115/65
[2017-12-28] MEDS: CLOPIDOGREL 75MG TABLET PO SCH (08:39)
[2017-12-28] MEDS: MAGNESIUM OXIDE 400MG TABLET PO SCH ×2 (08:39→17:16)
[2017-12-28 12:00] VITALS: BP 103/62
[2017-12-28 16:00] VITALS: BP 108/52
[2017-12-28 20:00] VITALS: BP 112/57
[2017-12-28] MEDS: HALOPERIDOL LACTATE 5MG/ML VIAL IM PRN (21:08)
[2017-12-29] VITALS: BP 126/61
[2017-12-29 04:00] VITALS: BP 110/49
[2017-12-29 08:00] VITALS: BP 102/52
[2017-12-29] MEDS: MAGNESIUM OXIDE 400MG TABLET PO SCH ×2 (08:21→16:12)
[2017-12-29] MEDS: CLOPIDOGREL 75MG TABLET PO SCH (08:21)
[2017-12-29 12:00] VITALS: BP 108/41
[2017-12-29 16:00] VITALS: BP 122/59
[2017-12-29] MEDS: ENOXAPARIN 40MG/0.4ML SYR SUBCUT SCH (16:51)
[2017-12-29 20:00] VITALS: BP 95/44
[2017-12-30] VITALS: BP 106/31
[2017-12-30 08:00] VITALS: BP 116/52
[2017-12-30] MEDS: CLOPIDOGREL 75MG TABLET PO SCH (08:47)
[2017-12-30] MEDS: MAGNESIUM OXIDE 400MG TABLET PO SCH ×2 (08:50→17:30)
[2017-12-30 12:00] VITALS: BP 100/58
[2017-12-30 16:00] VITALS: BP 108/58
[2017-12-30] MEDS: DOCUSATE SODIUM 100MG CAPSULE PO SCH (17:30)
[2017-12-30] MEDS: ENOXAPARIN 40MG/0.4ML SYR SUBCUT SCH (17:30)
[2017-12-30 20:00] VITALS: BP 93/49
[2017-12-30] MEDS: POLYETHYLENE GLYCOL 3350 (17GM) 1 DOSE PACK PO SCH (21:28)
[2017-12-31] VITALS: BP 98/38
[2017-12-31 04:00] VITALS: BP 101/52
[2017-12-31] MEDS: PANTOPRAZOLE 40MG DR TABLET PO SCH (06:22)
[2017-12-31 08:00] VITALS: BP 104/31
[2017-12-31] MEDS: DOCUSATE SODIUM 100MG CAPSULE PO SCH (09:00)
[2017-12-31] MEDS: CLOPIDOGREL 75MG TABLET PO SCH (09:06)
[2017-12-31] MEDS: MAGNESIUM OXIDE 400MG TABLET PO SCH ×2 (09:06→17:20)
[2017-12-31 12:00] VITALS: BP 110/41
[2017-12-31 16:00] VITALS: BP 117/43
[2017-12-31] MEDS: ENOXAPARIN 40MG/0.4ML SYR SUBCUT SCH (17:20)
[2017-12-31 20:00] VITALS: BP 92/56
[2017-12-31] MEDS: POLYETHYLENE GLYCOL 3350 (17GM) 1 DOSE PACK PO SCH (21:00)
[2018-01-01] VITALS: BP 125/54
[2018-01-01 04:00] VITALS: BP 105/48
[2018-01-01] MEDS: PANTOPRAZOLE 40MG DR TABLET PO SCH (06:10)
[2018-01-01 07:31] LABS: CHLORIDE 105 mEq/L (98-107)
[2018-01-01 07:45] LABS: PHOSPHORUS 2.7 mg/dL (2.5-4.9)
[2018-01-01 08:00] VITALS: BP 123/51
[2018-01-01] MEDS: DOCUSATE SODIUM SUGAR FREE 100MG/10ML UDC PO SCH ×2 (08:16→16:10)
[2018-01-01] MEDS: CLOPIDOGREL 75MG TABLET PO SCH (08:16)
[2018-01-01] MEDS: MAGNESIUM OXIDE 400MG TABLET PO SCH ×2 (08:16→16:10)
[2018-01-01 08:34] LABS: BASOPHILS % 0.4 % (0.0-2.0); EOSINOPHILS % 2.8 % (0.0-5.0); HEMATOCRIT. 37.8 % (42.0-52.0); HEMOGLOBIN. 13.3 g/dL (14.0-18.0); MEAN CORPUSCULAR HEMOGLOBIN 31.1 pg (28.0-32.0); MEAN PLATELET VOLUME 8.3 fl (7.4-10.4); MONOCYTES % 7.6 % (2.0-8.0); NEUTROPHILS % 70.2 % (40.0-76.0); PLATELET 252 x1000/uL (130-400); RED CELL DISTRIBUTION WIDTH 13.9 % (11.6-14.6)
[2018-01-01 12:00] VITALS: BP 100/42
[2018-01-01 16:00] VITALS: BP 95/47
[2018-01-01] MEDS: ENOXAPARIN 40MG/0.4ML SYR SUBCUT SCH (16:10)
[2018-01-01 20:00] VITALS: BP 165/55
[2018-01-01] MEDS: POLYETHYLENE GLYCOL 3350 (17GM) 1 DOSE PACK PO SCH (21:32)
[2018-01-01] MEDS: FAMOTIDINE 20MG TABLET PO SCH (21:32)
[2018-01-02] VITALS: BP 109/53
[2018-01-02 04:00] VITALS: BP 101/52
[2018-01-02 08:00] VITALS: BP 101/51
[2018-01-02] MEDS: CLOPIDOGREL 75MG TABLET PO SCH (09:15)
[2018-01-02] MEDS: FAMOTIDINE 20MG TABLET PO SCH ×2 (09:15→21:59)
[2018-01-02] MEDS: DOCUSATE SODIUM SUGAR FREE 100MG/10ML UDC PO SCH ×2 (09:15→17:26)
[2018-01-02] MEDS: MAGNESIUM OXIDE 400MG TABLET PO SCH ×2 (09:15→17:27)
[2018-01-02 12:00] VITALS: BP 97/46
[2018-01-02 16:00] VITALS: BP 97/53
[2018-01-02] MEDS: ENOXAPARIN 40MG/0.4ML SYR SUBCUT SCH (17:28)
[2018-01-02 20:00] VITALS: BP 121/50
[2018-01-02] MEDS: POLYETHYLENE GLYCOL 3350 (17GM) 1 DOSE PACK PO SCH (21:59)
[2018-01-03] VITALS: BP 109/53
[2018-01-03] MEDS: HALOPERIDOL LACTATE 5MG/ML VIAL IM PRN (03:44)
[2018-01-03 04:00] VITALS: BP 111/73
[2018-01-03] MEDS: MAGNESIUM OXIDE 400MG TABLET PO SCH ×2 (09:12→16:37)
[2018-01-03] MEDS: FAMOTIDINE 20MG TABLET PO SCH ×2 (09:12→22:06)
[2018-01-03] MEDS: DOCUSATE SODIUM SUGAR FREE 100MG/10ML UDC PO SCH ×2 (09:12→16:37)
[2018-01-03] MEDS: CLOPIDOGREL 75MG TABLET PO SCH (15:45)
[2018-01-03 16:00] VITALS: BP 116/55
[2018-01-03] MEDS: ENOXAPARIN 40MG/0.4ML SYR SUBCUT SCH (16:37)
[2018-01-03 20:00] VITALS: BP 111/51
[2018-01-03] MEDS: POLYETHYLENE GLYCOL 3350 (17GM) 1 DOSE PACK PO SCH (22:06)
[2018-01-04] VITALS: BP 115/56
[2018-01-04 04:00] VITALS: BP 104/44
[2018-01-04] MEDS: DOCUSATE SODIUM SUGAR FREE 100MG/10ML UDC PO SCH ×3 (09:00→17:00)
[2018-01-04] MEDS: CLOPIDOGREL 75MG TABLET PO SCH (09:44)
[2018-01-04] MEDS: MAGNESIUM OXIDE 400MG TABLET PO SCH ×2 (09:44→17:00)
[2018-01-04] MEDS: FAMOTIDINE 20MG TABLET PO SCH ×2 (09:44→21:52)
[2018-01-04 16:00] VITALS: BP 108/46
[2018-01-04] MEDS: ENOXAPARIN 40MG/0.4ML SYR SUBCUT SCH (17:00)
[2018-01-04 20:00] VITALS: BP 116/54
[2018-01-04] MEDS: POLYETHYLENE GLYCOL 3350 (17GM) 1 DOSE PACK PO SCH (21:52)
[2018-01-05] VITALS: BP 105/55
[2018-01-05 04:00] VITALS: BP 103/58
[2018-01-05 07:36] LABS: BASOPHILS % 0.4 % (0.0-2.0); EOSINOPHILS % 1.6 % (0.0-5.0); HEMATOCRIT. 36.8 % (42.0-52.0); LYMPHOCYTES % 13.2 % (20.0-50.0); MEAN CORPUSCULAR VOLUME 87.9 fL (80.0-94.0); MEAN PLATELET VOLUME 8.6 fl (7.4-10.4); MONOCYTES % 7.2 % (2.0-8.0); NEUTROPHILS % 77.6 % (40.0-76.0); PLATELET 254 x1000/uL (130-400); RED BLOOD CELL COUNT 4.19 mill/uL (4.7-6.1); RED CELL DISTRIBUTION WIDTH 14.2 % (11.6-14.6)
[2018-01-05 08:02] LABS: CHLORIDE 104 mEq/L (98-107)
[2018-01-05] MEDS: MAGNESIUM OXIDE 400MG TABLET PO SCH ×2 (08:49→16:44)
[2018-01-05] MEDS: FAMOTIDINE 20MG TABLET PO SCH ×2 (08:49→22:15)
[2018-01-05] MEDS: DOCUSATE SODIUM SUGAR FREE 100MG/10ML UDC PO SCH ×2 (08:49→16:44)
[2018-01-05] MEDS: CLOPIDOGREL 75MG TABLET PO SCH (08:49)
[2018-01-05 16:00] VITALS: BP 117/63
[2018-01-05] MEDS: ENOXAPARIN 40MG/0.4ML SYR SUBCUT SCH (16:43)
[2018-01-05 20:00] VITALS: BP 110/42
[2018-01-05] MEDS: POLYETHYLENE GLYCOL 3350 (17GM) 1 DOSE PACK PO SCH (22:16)
[2018-01-05] MEDS: ATORVASTATIN CALCIUM 10MG TABLET PO SCH (22:16)
[2018-01-06] VITALS: BP 104/48
[2018-01-06 04:00] VITALS: BP 124/56
[2018-01-06] MEDS: DOCUSATE SODIUM SUGAR FREE 100MG/10ML UDC PO SCH ×3 (08:44→16:50)
[2018-01-06] MEDS: CLOPIDOGREL 75MG TABLET PO SCH (08:44)
[2018-01-06] MEDS: FAMOTIDINE 20MG TABLET PO SCH ×2 (08:44→20:41)
[2018-01-06] MEDS: MAGNESIUM OXIDE 400MG TABLET PO SCH ×2 (08:44→16:42)
[2018-01-06 12:00] VITALS: BP 112/29
[2018-01-06] MEDS: ENOXAPARIN 40MG/0.4ML SYR SUBCUT SCH (16:41)
[2018-01-06 20:00] VITALS: BP 103/59
[2018-01-06] MEDS: ATORVASTATIN CALCIUM 10MG TABLET PO SCH (20:41)
[2018-01-06] MEDS: POLYETHYLENE GLYCOL 3350 (17GM) 1 DOSE PACK PO SCH (20:41)
[2018-01-07] VITALS: BP 112/54
[2018-01-07 04:00] VITALS: BP 110/51
[2018-01-07 08:00] VITALS: BP 106/48
[2018-01-07] MEDS: MAGNESIUM OXIDE 400MG TABLET PO SCH ×2 (08:58→16:27)
[2018-01-07] MEDS: FAMOTIDINE 20MG TABLET PO SCH ×2 (08:58→22:31)
[2018-01-07] MEDS: DOCUSATE SODIUM SUGAR FREE 100MG/10ML UDC PO SCH ×2 (08:59→16:27)
[2018-01-07] MEDS: CLOPIDOGREL 75MG TABLET PO SCH (08:59)
[2018-01-07 12:00] VITALS: BP 92/56
[2018-01-07] MEDS: LACTULOSE 20G/30ML UDC PO SCH ×3 (13:37→22:30)
[2018-01-07 16:00] VITALS: BP 113/58
[2018-01-07] MEDS: ENOXAPARIN 40MG/0.4ML SYR SUBCUT SCH (16:26)
[2018-01-07 20:00] VITALS: BP 109/55
[2018-01-07] MEDS: POLYETHYLENE GLYCOL 3350 (17GM) 1 DOSE PACK PO SCH (21:00)
[2018-01-07] MEDS: ATORVASTATIN CALCIUM 10MG TABLET PO SCH (22:30)
[2018-01-07] MEDS: HALOPERIDOL LACTATE 5MG/ML VIAL IM PRN (22:32)
[2018-01-08] VITALS: BP 104/54
[2018-01-08 04:00] VITALS: BP 117/46
[2018-01-08 08:00] VITALS: BP 111/50
[2018-01-08] MEDS: MAGNESIUM OXIDE 400MG TABLET PO SCH ×2 (09:00→17:00)
[2018-01-08] MEDS: DOCUSATE SODIUM SUGAR FREE 100MG/10ML UDC PO SCH ×2 (09:00→17:00)
[2018-01-08] MEDS: CLOPIDOGREL 75MG TABLET PO SCH (09:00)
[2018-01-08] MEDS: FAMOTIDINE 20MG TABLET PO SCH ×2 (09:00→21:00)
[2018-01-08 12:00] VITALS: BP 95/45
[2018-01-08 16:00] VITALS: BP 108/42
[2018-01-08] MEDS: ENOXAPARIN 40MG/0.4ML SYR SUBCUT SCH (16:45)
[2018-01-08 20:00] VITALS: BP 101/98
[2018-01-08] MEDS: ATORVASTATIN CALCIUM 10MG TABLET PO SCH (21:00)
[2018-01-08] MEDS: POLYETHYLENE GLYCOL 3350 (17GM) 1 DOSE PACK PO SCH (21:00)
[2018-01-09] VITALS: BP 98/50
[2018-01-09 04:00] VITALS: BP 111/53
[2018-01-09 08:00] VITALS: BP 91/44
[2018-01-09] MEDS: MAGNESIUM OXIDE 400MG TABLET PO SCH ×2 (08:42→16:11)
[2018-01-09] MEDS: DOCUSATE SODIUM SUGAR FREE 100MG/10ML UDC PO SCH ×2 (08:42→16:11)
[2018-01-09] MEDS: FAMOTIDINE 20MG TABLET PO SCH ×2 (08:43→20:54)
[2018-01-09] MEDS: CLOPIDOGREL 75MG TABLET PO SCH (08:43)
[2018-01-09] MEDS ORDERED: NA PHOS,M-B/NA PHOS,DI-BA ENEMA 118ML PR NR (11:30)
[2018-01-09] MEDS ORDERED: NA PHOS,M-B/NA PHOS,DI-BA ENEMA 118ML PR PRN (11:45)
[2018-01-09 12:00] VITALS: BP 90/47
[2018-01-09] MEDS: LACTULOSE 20G/30ML UDC PO SCH ×3 (12:44→20:58)
[2018-01-09 16:00] VITALS: BP 89/30
[2018-01-09] MEDS: ENOXAPARIN 40MG/0.4ML SYR SUBCUT SCH (16:11)
[2018-01-09 20:00] VITALS: BP 100/51
[2018-01-09] MEDS: ATORVASTATIN CALCIUM 10MG TABLET PO SCH (20:54)
[2018-01-09] MEDS: POLYETHYLENE GLYCOL 3350 (17GM) 1 DOSE PACK PO SCH (20:58)
[2018-01-10] VITALS: BP 99/49
[2018-01-10 04:00] VITALS: BP 104/56
[2018-01-10 08:00] VITALS: BP 107/49
[2018-01-10] MEDS: FAMOTIDINE 20MG TABLET PO SCH ×3 (09:00→20:09)
[2018-01-10] MEDS: MAGNESIUM OXIDE 400MG TABLET PO SCH ×2 (09:00→17:30)
[2018-01-10] MEDS: DOCUSATE SODIUM SUGAR FREE 100MG/10ML UDC PO SCH ×2 (09:00→17:00)
[2018-01-10] MEDS: CLOPIDOGREL 75MG TABLET PO SCH (09:00)
[2018-01-10 16:00] VITALS: BP 92/38
[2018-01-10] MEDS: ENOXAPARIN 40MG/0.4ML SYR SUBCUT SCH (16:45)
[2018-01-10 20:00] VITALS: BP 106/27
[2018-01-10] MEDS: ATORVASTATIN CALCIUM 10MG TABLET PO SCH ×2 (20:04→20:08)
[2018-01-10] MEDS: POLYETHYLENE GLYCOL 3350 (17GM) 1 DOSE PACK PO SCH ×2 (20:06→20:08)
[2018-01-11] VITALS: BP 111/42
[2018-01-11 07:53] LABS: BASOPHILS % 0.4 % (0.0-2.0); EOSINOPHILS % 1.5 % (0.0-5.0); HEMATOCRIT. 38.6 % (42.0-52.0); HEMOGLOBIN. 13.4 g/dL (14.0-18.0); LYMPHOCYTES % 18.5 % (20.0-50.0); MEAN CORPUSCULAR HEMOGLOBIN 30.6 pg (28.0-32.0); MEAN PLATELET VOLUME 8.5 fl (7.4-10.4); MONOCYTES % 7.1 % (2.0-8.0); NEUTROPHILS % 72.5 % (40.0-76.0); PLATELET 271 x1000/uL (130-400); RED BLOOD CELL COUNT 4.39 mill/uL (4.7-6.1); RED CELL DISTRIBUTION WIDTH 14.2 % (11.6-14.6)
[2018-01-11 08:00] VITALS: BP 105/48
[2018-01-11 08:18] LABS: CHLORIDE 105 mEq/L (98-107)
[2018-01-11] MEDS: MAGNESIUM OXIDE 400MG TABLET PO SCH ×2 (08:22→16:19)
[2018-01-11] MEDS: DOCUSATE SODIUM SUGAR FREE 100MG/10ML UDC PO SCH ×3 (08:22→16:15)
[2018-01-11] MEDS: CLOPIDOGREL 75MG TABLET PO SCH (08:22)
[2018-01-11] MEDS: FAMOTIDINE 20MG TABLET PO SCH ×2 (08:22→21:00)
[2018-01-11 08:37] LABS: PHOSPHORUS 3.1 mg/dL (2.5-4.9)
[2018-01-11 12:00] VITALS: BP 98/54
[2018-01-11 16:00] VITALS: BP 100/40
[2018-01-11] MEDS: ENOXAPARIN 40MG/0.4ML SYR SUBCUT SCH (16:45)
[2018-01-11 20:00] VITALS: BP 101/47
[2018-01-11] MEDS: POLYETHYLENE GLYCOL 3350 (17GM) 1 DOSE PACK PO SCH (21:00)
[2018-01-11] MEDS: ATORVASTATIN CALCIUM 10MG TABLET PO SCH (21:00)
[2018-01-11] MEDS: HALOPERIDOL LACTATE 5MG/ML VIAL IM PRN (22:16)
[2018-01-12] VITALS: BP 109/55
[2018-01-12 04:00] VITALS: BP 117/46
[2018-01-12] MEDS: FAMOTIDINE 20MG TABLET PO SCH (08:54)
[2018-01-12] MEDS: MAGNESIUM OXIDE 400MG TABLET PO SCH (08:54)
[2018-01-12] MEDS: DOCUSATE SODIUM SUGAR FREE 100MG/10ML UDC PO SCH ×2 (08:54→16:12)
[2018-01-12] MEDS: CLOPIDOGREL 75MG TABLET PO SCH (08:54)
[2018-01-12 12:00] VITALS: BP 96/92
[2018-01-12] MEDS: ENOXAPARIN 40MG/0.4ML SYR SUBCUT SCH (16:12)
[2018-01-12 21:02] VITALS: BP 96/72
== END 2018-01-12 17:38 | DRG 812 ==
LOC: ER 11:23 → 5WST 11-28 15:01 → ENRESERV 11-28 20:00 → 6EST 12-12 17:12
PROVIDERS: ADMIT Internal Medicine; ATTEND Internal Medicine
DX: T43.621A Poisoning by amphetamines, accidental (unintentional), initial encounter (principal); I63.9 Cerebral infarction, unspecified; I21.4 Non-ST elevation (NSTEMI) myocardial infarction; G92 Toxic encephalopathy; G82.50 Quadriplegia, unspecified; E44.0 Moderate protein-calorie malnutrition; R13.10 Dysphagia, unspecified; I11.9 Hypertensive heart disease without heart failure; M62.82 Rhabdomyolysis; E83.42 Hypomagnesemia; I42.9 Cardiomyopathy, unspecified; R47.01 Aphasia; E78.5 Hyperlipidemia, unspecified; F17.210 Nicotine dependence, cigarettes, uncomplicated; F15.10 Other stimulant abuse, uncomplicated; E78.00 Pure hypercholesterolemia, unspecified; D72.829 Elevated white blood cell count, unspecified; H54.7 Unspecified visual loss; J44.9 Chronic obstructive pulmonary disease, unspecified; R47.1 Dysarthria and anarthria; R00.1 Bradycardia, unspecified; I25.2 Old myocardial infarction; Z68.21 Body mass index [BMI] 21.0-21.9, adult; Y92.89 Other specified places as the place of occurrence of the external cause; Z79.899 Other long term (current) drug therapy
CPT/HCPCS: 36415; 51702; 70544; 70551; 74230; 80048; 80061; 80305; 80307; 80329; 81400; 81403; 81407; 81479; 82140; 82550; 82553; 82607; 82746; 82962; 83036; 83735; 84100; 84439; 84443; 84481; 84484; 85300; 85303; 85306; 85613; 85732; 86147; 92523; 92610; 92611; 93005; 93306; 93880; 93970; 96361; 96374; 96375; 97112; 97116; 97162; 97164; 97166; 97530; 97535; 99285; G0482; J1630; J1650; J2270; J2405; J7030; A4315